=== PATIENT | female | born 2000 | race Two or more races ===

== ENCOUNTER 2021-09-19 06:13 | Emergency (ER) | payer SELFPAY ==
[~2021-09-19] VITALS: Ht 152.4 cm; Wt 52.2 kg
[2021-09-19 07:34] VITALS: BP 96/53
[2021-09-19 07:45] LABS: Urine Bacteria FEW /hpf (None Seen); Urine Blood Negative /uL (Negative); Urine Mucus FEW (None Seen); Urine Specific Gravity 1.008 (1.001-1.035); Urine WBC 41 /hpf (0 - 5)
== END 2021-09-19 08:58 | disposition home or self-care (01) ==
LOC: ER 06:13
DX: N39.0 Urinary tract infection, site not specified (principal)
CPT/HCPCS: 81001; 81025